=== PATIENT | female | born 1955 | race Caucasian/White ===

== ENCOUNTER → 2018-10-25 15:30 | Outpatient (CLI) | payer MEDICARE, OTHER, SELFPAY ==
[2018-10-25 17:36] LABS: Vitamin D,25 Hydroxy 24.1 ng/mL (29.95-100.01)
--- OUTSIDE RECORDS SUMMARY | 2019-01-27 08:05 | XMS RPT_ITS ---
:1955 Author Organization OHIP Care Team Providers Name Role Phone CHRIS HUIZAR Attending Unavailable CHRIS HUIZAR Referring Unavailable CHRSI HUIZAR Attending Unavailable CHRIS HUIZAR Referring Unavailable CHRIS HUIZAR Referring Unavailable CHRIS HUIZAR Referring Unavailable Omaira Ritchie Attending Unavailable Chris Huizar Primary Care Unavailable Omaira Ritchie Attending Unavailable Chris Huizar Primary Care Unavailable Omaira Ritchie Referring Unavailable PROBLEMS PROBLEMS DATE TYPE CONDITION / CODE ATTENDING STATUS SOURCE 10/25/2018 Unknown E55.9 - Vitamin D Omaira Ritchie Active [place] [facility] / Hospital E55.9(ICD-10) Repository 09/08/2018 Active Personal history of NA Active [place] other endocrine, Clinic Main nutritional and [place] metabolic disease / Repository Z86.39(ICD-10) 05/23/2009 Active Benign neoplasm of NA Active [place] pituitary gland / Clinic Main D35.2(ICD-10) [place] Repository 05/23/2009 Active Benign neoplasm of NA Active [facility] craniopharyngeal duct Clinic Main / D35.3(ICD-10) [place] Repository PROCEDURES PROCEDURES No Procedure Records FoundRESULTS RESULTS SCREENING MAMM (CAD), Observed: 11/17/2018 Status: F Source: [place] BILAT 12:18 PM [facility] HOSPITAL REPOSITORY [facility] Imaging Services [address] [place] [address] SCREENING MAMM (CAD), BILAT MR#: [id number] Acct: [id number] Name: LACEY CORREA Rep #: [id number] : 1955 F 63 From: Henok Szymanski MD PCP: Chris Huizar MD Status: REG CLI Study: SCREENING MAMM (CAD), BILAT Date of Exam: 11/17/18 Exam# [id number] Ordering Dr: Omaira Ritchie MD MAMMOGRAPHY - BILATERAL SCREENING REASON FOR EXAM: Female, 63 years old. Routine annual screening examination. PERTINENT HISTORY: Aunt with breast cancer. TECHNIQUE: Digital bilateral breast nadia (3D mammographic acquisition) in the CC and MLO projections. 2-D mediolateral oblique (MLO) and craniocaudad (CC) views of both breasts were obtained. CAD: Full Field Digital Mammography with Computer Added Detection was performed. COMPARISON: Comparison is made with prior study dated October 24, 2016 and November 05, 2017. FINDINGS: Breast Composition: The breasts are heterogeneously dense, which may obscure small masses. There are no dominant masses or suspicious calcifications. No other significant abnormalities are identified. There has been no significant change since the prior study. BI/SCREENING MAMM (CAD), BILAT IMPRESSION: Stable bilateral screening mammogram. Yearly follow-up mammogram recommended. (A) ASSESSMENT CATEGORY: BIRADS Category 1: Negative. A letter regarding these results will be sent to the patient by the facility within 30 days. Approximately 10% of breast cancers are not detected by mammography. A normal mammogram should not delay biopsy of a clinically suspicious abnormality. [id number] Electronically Signed: Henok Szymanski MD at 13:21 EST Tel [phone], Service support , CC: Omaira Ritchie MD; Chris Huizar MD Cloth Finishing Range Operator: Signed VITAMIN D,25 HYDROXY Collected: 10/25/2018 Status: F Source: [place] 3:41 PM [facility] REPOSITORY TYPE CODE TESTS RESULT OUT OF REFERENCE UNITS RANGE LAB L506.1000 29.95-100.01 ng/mL Low Vitamin D 24.1 25-OH Result Comment: Vitamin D 25(OH) Status Range Deficiency <20 ng/mL (50nmol/L) Insuffciency 20 - 30 ng/mL (50 - 75 nmol/L) Sufficiency 30 - 100 ng/mL (75 - 250 nmol/L) Toxicity >100 ng/mL (>250 nmol/L) Performed By: #### L506.1000 #### [facility] [place] [address] [place], [address] MRI PITUITARY WO/W Observed: 09/08/2018 Status: F Source: [place] IVCON 3:45 PM [facility] REPOSITORY * * *Final Report* * * DATE OF EXAM: Sep 08 2018 3:45PM [facility] 0314 - MRI PITUITARY WO/W IVCON / PROCEDURE REASON: multiple diagnoses * * * * Physician Interpretation * * * * EXAMINATION: MRI PITUITARY WO/W IVCON HISTORY: 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 (HCC) History of pituitary adenoma COMPARISON: 09/09/2016 and prior. TECHNIQUE: MRI brain pituitary protocol including postcontrast T1-weighted scans. No MRA. MR Contrast: Dotarem MR Contrast Volume (ml): 6ml MR Contrast Route of Administration: IV RESULT: Postsurgical changes from transsphenoidal resection of sellar mass are redemonstrated. The infundibulum is deviated to the right and there is residual [place] pituitary tissue in the right aspect of the sella. Hypoenhancing foci are present in the inferior aspect of the left and right sella which are grossly unchanged compared with prior study. On the left this measures approximately 0.9 cm TR, 0.7 cm AP and 0.3 cm CC. On the right this measures approximately 0.4 x 0.3 x 0.3 cm. There is are unchanged compared with prior study when measured at a similar level. There is no new sellar or suprasellar mass. The optic chiasm and optic apparatus is unremarkable. Visualized intracranial structures demonstrate no acute finding. Patchy white matter T2 hyperintensities likely representing chronic microvascular ischemic changes. IMPRESSION: Postsurgical change with stable appearance of the sella compared with prior studies. Cloth Finishing Range Operator: PSCShanita Transcribe Date/Time: Sep 08 2018 4:03P Dictated by : BHASKAR BRANTLEY MD This examination was interpreted and the report reviewed and electronically signed by: BHASKAR BRANTLEY MD on Sep 08 2018 4:16PM EST [id number] PROGRESS Observed: 09/08/2018 Status: COMPLETED Source: [place] 3:31 PM [facility] REPOSITORY HNO ID: [id number] Author: Gwendolyn (Rt) Cami Lay Service: (none) Author Type: Revenue Tax Specialist Type: Progress Notes Filed: 09/08/2018 3:32 PM Note Text: Radiology Service Progress Note PATIENT NAME: Lacey Correa DATE OF SERVICE: September 08, 2018 TIME: 3:31 PM PATIENT IDENTITY VERIFICATION COMPLETED USING TWO (2) METHODS: Patient confirmed name verbally and Date of . PATIENT GENDER DATA: Female. status: : No status: NO. PATIENT RELEVANT IMPLANT DATA REVIEWED: Yes CONTRAST INDUCED NEPHROPATHY RISK FACTORS: Patient age > 60 years CREATININE: Creatinine Date Value Ref Range Status 08/31/2018 0.77 0.58 - 0.96 mg/dL Final 08/26/2016 0.80 0.58 - 0.96 mg/dL Final 08/29/2014 0.81 0.70 - 1.40 mg/dL Final eGFR-All Other Races Date Value Ref Range Status 08/31/2018 >60 . Final Comment: eGFR (Estimated GFR) Units of measure: mL/min/1.73 meters squared eGFR is derived from the reexpressed MDRD Study equation using the following parameters: serum creatinine, age, gender and race. The creatinine assay has been calibrated to be traceable to IDMS. An eGFR <60 mL/min/1.73m2 for >3 months is consistent with chronic kidney disease. Refer to KDOQI guidelines for clinical interpretation. In patients with unstable renal function, e.g. those with acute kidney injury, the eGFR may not accurately reflect actual GFR. eGFR- Date Value Ref Range Status 08/31/2018 >60 Final P.O.C.T. RESULTS: POC done: Yes, See Lab Tab September 08, 2018 RADIOLOGIST NOTIFIED?: No ALLERGIES: Reviewed and unchanged CONTRAST ALLERGY: NO. PERIPHERAL IV ACCESS: Ambulatory: IV type: A peripheral IV was started in the Right antecubital site with a Angio cath: 22 gauge., Site assessment: Clean,Dry and Intact, Site disposition Discontinued RADIOLOGY DEPARTMENT: MR; Exam(s) Completed: Head: Pituitary SIGNED BY: RT Andria September 08, 2018 3:31 PM CREATININE Collected: 08/31/2018 Status: F Source: [place] 3:49 PM [facility] REPOSITORY TYPE CODE TESTS RESULT OUT OF REFERENCE UNITS RANGE LAB CRET 0.58-0.96 mg/dL Creatinine 0.77 LAB GFRAA eGFR- >60 Amer. LAB GFRNAA . eGFR-All Other Races >60 Result Comment: eGFR (Estimated GFR) Units of measure: mL/min/1.73 meters squared eGFR is derived from the reexpressed MDRD Study equation using the following parameters: serum creatinine, age, gender and race. The creatinine assay has been calibrated to be traceable to IDMS. An eGFR <60 mL/min/1.73m2 for >3 months is consistent with chronic kidney disease. Refer to KDOQI guidelines for clinical interpretation. In patients with unstable renal function, e.g. those with acute kidney injury, the eGFR may not accurately reflect actual GFR. Performed By: #### CRET1 #### [facility] [address] [place] [id number] CNOV Observed: 08/25/2018 Status: COMPLETED Source: [place] 1:20 PM [facility] REPOSITORY Office Visit (FAMPWS) LACEY CORREA ([id number]) 1955 F Date Time Provider Department 08/25/18 1:20 PM CHRIS HUIZAR During your visit today, we recorded the following information about you: Temperature Pulse Respiration Blood pressure 97.2 degrees 64/minute 16/minute 138/78 Weight 54.9 kg Chris Huizar MD 08/25/2018 1:45 PM Signed Chief Complaint Patient presents with: F/U 6 months Imm/Inj: Flu Vaccine HPI Lacey Correa is a 63 year old female who presents here today for 6 month follow up. Spending most of their time here, traveling a lot. Going to [facility] to [place], they do Nepalese set dancing which is similar to square dancing. Her children moved from [place] to [place]. Insomnia: is taking temazepam 15 mg about 2-3 times a week. Does not use daily. Tolerating the medication well, no problems or side effects. Is due for MRI Pituitary with Contrast, is having this done every 2 years at this time. Last one was Sep 2016. Dr Johnson's note from 2012 said: Patient should follow-up in clinic (or her local primary MD, which she refers and can be referred back to Dr. patel if she needs endocrine attention) in one year with serial MRs (1.5 T or stronger, of sella) -/+ Charly (or other neuroimaging if cannot tolerate MR) , once yearly through five years (fall 2013), then at 2 year intervals to 10 years or so and then q 3-5 years thereafter or if symptomatic. Past medical history, appointments, medications, allergies reviewed. Previous Medical History PAST MEDICAL HISTORY Diagnosis Date - Endometrial hyperplasia with atypia 06/16 - Pituitary adenoma (HCC) Previous Surgical History PAST SURGICAL HISTORY Procedure Laterality Date - PAST SURGICAL HISTORY OF Right inquinal hernia repair - PAST SURGICAL HISTORY OF 05/25/2009 Transnasal, transseptal, transsphenoidal hypophysectomy - VAGINAL HYSTERECTOMY 06/2008 Hysterectomy, vaginal Family History FAMILY HISTORY Problem Relation Age of Onset - Cancer Father non hogkin's lymphoma - Cancer Brother at age 20- dies from it testicular - Cancer Brother at age 20 testicular cancer - Cancer Paternal Uncle from testicular cancer - Colon Cancer Sister 51 Patient Allergies ALLERGIES No Known Allergies Current Medications Current Outpatient Prescriptions on File Prior to Visit: temazepam (RESTORIL) 15 mg cap Take 1 capsule at bedtime as needed For insomnia. DIPHENHYDRAMINE HCL (BENADRYL ORAL) Take by mouth. No current facility-administered medications on file prior to visit. Social History Social History Marital status: Spouse name: Years of education: Number of children: Social History Main Topics Smoking status: Never Smoker Smokeless tobacco: Never Used Alcohol use: No Drug use: No EXAM: BP 138/78 Pulse 64 Temp 36.2 ?C (97.2 ?F) (Tympanic) Resp 16 Wt 54.9 kg (121 lb) BMI 20.14 kg/m? General Appearance: Well appearing, alert, in no acute distress, well-hydrated, well nourished.. Lungs: Lungs clear to auscultation. No wheezing, rhonchi, rales. Heart: RRR without murmur, gallop, or rubs. No ectopy. Health Maintenance List DTAP,TDAP,TD(1 - Tdap) due on 1972 HEPATITIS C SCREENING due on 1997 INFLUENZA(1) due on 07/10/2018 BONE DENSITY due on 2018 ADULT PREVNAR-13 due on 2018 PAP EVERY 3 YEARS (65-80 YEARS OLD) due on 2018 PNEUMOVAX AGE 65 AND OVER WITH 5YR LOOKBACK(1) due on 2018 DIABETES SCREEN due on 10/17/2018 MAMMOGRAM due on 11/05/2018 LIPID SCREEN due on 10/17/2020 COLORECTAL CANCER SCREENING,SEE MODIFIER due on 03/18/2026 Data reviewed none ASSESSMENT/PLAN: 1. Adjustment insomnia - ICD9: 307.41, ICD10: F51.02 (primary diagnosis) controlled - TEMAZEPAM 15 MG CAPSULE 2. Need for vaccination - ICD9: V05.9, ICD10: Z23 - INFLUENZA SEASONAL HIGH DOSE AGE 65+ - PNEUMOCOCCAL-13 VACCINE PCV-13 3. Benign neoplasm of pituitary gland and craniopharyngeal duct (pouch) (HCC) - ICD9: 227.3, ICD10: D35.2, D35.3 Creatinine labs a few days prior - MRI PITUITARY WO/W IVCON - IV CONTRAST (RADIOLOGY PROCEDURE) Follow up in 6 months. I agree with the Chief Complaint, ROS, and Past Histories independently gathered by the clinical student support counselor and the remaining scribed note accurately describes my personal service to the patient. Chris Huizar MD The documentation for this note was completed by Akanksha Day Ma acting as scribe for Chris Huizar MD. August 25, 2018 1:20 PM. 63 year old female here for INACTIVATED INFLUENZA VACCINE. Season Patient is identified by name and date of : Yes [] CONTRAINDICATIONS color enhanced section Age less than 6 months? No Allergy to eggs, chicken, chicken feathers, or chicken dander? No Allergy to thimerosal (a preservative) or formaldehyde, gelatin? No History of severe reaction to any vaccine component or a previous dose of influenza vaccination? No History of Guillain-Badger Syndrome within 6 weeks after a previous influenza vaccine? No Patient is not moderately or severely ill? No Current temperature greater or equal to 100.4F? No History of Bone Marrow Transplant prior 6 months or solid organ transplant in the past 3 months ? No History of fainting after a prior injection or medical procedure? No- ? If patient has fainted in the past, the CDC recommends sitting or lying down for 15 minutes after the vaccination. [] VERIFICATION color enhanced section Was the answer Yes for any of the above contraindications? No contraindications present. Acceptable to proceed with vaccine. Patient/guardian agrees the above answers are true to the best of their knowledge? Yes Flu vaccine information sheet given? Yes See immunization activity in [facility] for details of immunizations adminstered today. Patient age: [age] year old For The 1523-1006 Flu Season 6-35 months old: Fluzone 0.25 ml - IM (Preservative Free) 3 years of age: Fluzone 0.5 ml - IM (Preservative Free) 3 years and older: Fluzone 0.5 ml- IM-(with Preservatives) 65+ years old: 2-49 years old Fluzone High-Dose 0.5 ml - IM (Preservative Free) FLUMIST- intranasal REMEMBER: If patient is less than 9 years of age and this is the first vaccine of Influenza to be received in any flu season, they should receive a second dose in one months time. Referring Provider: CHRIS HUIZAR [[id number]] Allergies As of Date: 08/25/2018 (No Known Allergies) Date Reviewed: 08/25/2018 Reviewed by: Akanksha Day Ma - Fully Assessed Reason for Visit: F/U 6 months [1177] Imm/Inj [58] Cmt: Flu Vaccine Reason For Visit History Recorded Primary Visit Diagnosis:Adjustment insomnia [F51.02] Other Visit Diagnoses:Need for vaccination [Z23] Benign neoplasm of pituitary gland and craniopharyngeal duct (pouch) (HCC) [D35.2, D35.3] History of pituitary adenoma [Z86.39] Order(s):INFLUENZA SEASONAL HIGH DOSE AGE 65+ [96809LFR] Order #: [id number] PNEUMOCOCCAL-13 VACCINE PCV-13 [75770CGN] Order #: [id number] temazepam (RESTORIL) 15 mg capTake 1 capsule at bedtime as needed For insomnia.Disp: 45 capsuleRfl: 1 MRI PITUITARY WO/W IVCON [[id number]] Order #: [id number] FUTURE iv contrast (will be provided with radiology test)MRI Pituitary Inject, intravenously, once for 1 dose. No IV access, insert saline lock prior to the beginning of sedation, infusion, injection of imaging exam. Discontinue saline lock post exam. If Pt. has a central line or IVAD, may access for administration according to line specific nursing protocol. Once exam is complete flush line and de-access according to line specific nursing protocol in the MR contrast administration guidelines link.Disp: 1 EachRfl: 0 CREATININE BLD [SQCRET] Order #: [id number] FUTURE Prescriptions as of 08/25/2018 Sig: TEMAZEPAM 15 MG CAPSULE Take 1 capsule at bedtime as * * BENADRYL ORAL Take by mouth. IV CONTRAST (RADIOLOGY PROCED* MRI Pituitary Inject, intrave* Problem List As Of Date 08/25/2018 Noted Resolved BENIGN KAVITHA PITUITARY [D35.2, D35.3] INVALID FOR* Adjustment insomnia [F51.02] INVALID FOR* Prescriptions ordered this encounter Disp Refills Start End TEMAZEPAM 15 MG CAPSULE 45 c* 1 08/25/2018 02/24/2019 Class: Print RX Sig: Take 1 capsule at bedtime as needed For insomnia. IV CONTRAST (RADIOLOGY PROCEDURE) 1 Ea* 0 08/25/2018 08/26/2018 Class: In Office Sig: MRI Pituitary Inject, intravenously, once for 1 dose. No IV access, insert saline lock prior to the beginning of sedation, infusion, injection of imaging exam. Discontinue saline lock post exam. If Pt. has a central line or IVAD, may access for administration according to line specific nursing protocol. Once exam is complete flush line and de-access according to line specific nursing protocol in the MR contrast administration guidelines link. Medications Discontinued During This Encounter temazepam (RESTORIL) 15 mg cap 30 c* 2 02/23/2018 08/25/2018 Class: Print RX Sig: Take 1 capsule at bedtime as needed For insomnia. Disc: Reason for discontinue is not on file. Disposition: Return in about 6 months (around 02/23/2019). Follow-up and Disposition History Recorded Encounter Status:Closed by CHRIS HUIZAR MD on 08/25/18 PROGRESS Observed: 08/25/2018 Status: COMPLETED Source: [place] 1:17 PM [facility] REPOSITORY O ID: [id number] Author: Chris Huizar Service: (none) Author Type: Physician Type: Progress Notes Filed: 08/25/2018 1:45 PM Note Text: Chief Complaint Patient presents with: F/U 6 months Imm/Inj: Flu Vaccine HPI Lacey Correa is a 63 year old female who presents here today for 6 month follow up. Spending most of their time here, traveling a lot. Going to [facility] to [place], they do Nep[place]e set dancing which is similar to square dancing. Her children moved from [place] to [place]. Insomnia: is taking temazepam 15 mg about 2-3 times a week. Does not use daily. Tolerating the medication well, no problems or side effects. Is due for MRI Pituitary with Contrast, is having this done every 2 years at this time. Last one was Sep 2016. Dr Johnson's note from 2012 said: Patient should follow-up in clinic (or her local primary MD, which she refers and can be referred back to Dr. patel if she needs endocrine attention) in one year with serial MRs (1.5 T or stronger, of sella) -/+ Charly (or other neuroimaging if cannot tolerate MR) , once yearly through five years (fall 2013), then at 2 year intervals to 10 years or so and then q 3-5 years thereafter or if symptomatic. Past medical history, appointments, medications, allergies reviewed. Previous Medical History PAST MEDICAL HISTORY Diagnosis Date - Endometrial hyperplasia with atypia 06/16 - Pituitary adenoma (HCC) Previous Surgical History PAST SURGICAL HISTORY Procedure Laterality Date - PAST SURGICAL HISTORY OF Right inquinal hernia repair - PAST SURGICAL HISTORY OF 05/25/2009 Transnasal, transseptal, transsphenoidal hypophysectomy - VAGINAL HYSTERECTOMY 06/2008 Hysterectomy, vaginal Family History FAMILY HISTORY Problem Relation Age of Onset - Cancer Father non hogkin's lymphoma - Cancer Brother at age 20- dies from it testicular - Cancer Brother at age 20 testicular cancer - Cancer Paternal Uncle from testicular cancer - Colon Cancer Sister 51 Patient Allergies ALLERGIES No Known Allergies Current Medications Current Outpatient Prescriptions on File Prior to Visit: temazepam (RESTORIL) 15 mg cap Take 1 capsule at bedtime as needed For insomnia. DIPHENHYDRAMINE HCL (BENADRYL ORAL) Take by mouth. No current facility-administered medications on file prior to visit. Social History Social History Marital status: Spouse name: Years of education: Number of children: Social History Main Topics Smoking status: Never Smoker Smokeless tobacco: Never Used Alcohol use: No Drug use: No EXAM: BP 138/78 Pulse 64 Temp 36.2 ?C (97.2 ?F) (Tympanic) Resp 16 Wt 54.9 kg (121 lb) BMI 20.14 kg/m? General Appearance: Well appearing, alert, in no acute distress, well-hydrated, well nourished.. Lungs: Lungs clear to auscultation. No wheezing, rhonchi, rales. Heart: RRR without murmur, gallop, or rubs. No ectopy. Health Maintenance List DTAP,TDAP,TD(1 - Tdap) due on 1972 HEPATITIS C SCREENING due on 1997 INFLUENZA(1) due on 07/10/2018 BONE DENSITY due on 2018 ADULT PREVNAR-13 due on 2018 PAP EVERY 3 YEARS (65-80 YEARS OLD) due on 2018 PNEUMOVAX AGE 65 AND OVER WITH 5YR LOOKBACK(1) due on 2018 DIABETES SCREEN due on 10/17/2018 MAMMOGRAM due on 11/05/2018 LIPID SCREEN due on 10/17/2020 COLORECTAL CANCER SCREENING,SEE MODIFIER due on 03/18/2026 Data reviewed none ASSESSMENT/PLAN: 1. Adjustment insomnia - ICD9: 307.41, ICD10: F51.02 (primary diagnosis) controlled - TEMAZEPAM 15 MG CAPSULE 2. Need for vaccination - ICD9: V05.9, ICD10: Z23 - INFLUENZA SEASONAL HIGH DOSE AGE 65+ - PNEUMOCOCCAL-13 VACCINE PCV-13 3. Benign neoplasm of pituitary gland and craniopharyngeal duct (pouch) (HCC) - ICD9: 227.3, ICD10: D35.2, D35.3 Creatinine labs a few days prior - MRI PITUITARY WO/W IVCON - IV CONTRAST (RADIOLOGY PROCEDURE) Follow up in 6 months. I agree with the Chief Complaint, ROS, and Past Histories independently gathered by the clinical student support counselor and the remaining scribed note accurately describes my personal service to the patient. Chris Huizar MD The documentation for this note was completed by Akanksha Day Ma acting as scribe for Chris Huizar MD. August 25, 2018 1:20 PM. 63 year old female here for INACTIVATED INFLUENZA VACCINE. 5162-6471 Season Patient is identified by name and date of : Yes [] CONTRAINDICATIONS color enhanced section Age less than 6 months? No Allergy to eggs, chicken, chicken feathers, or chicken dander? No Allergy to thimerosal (a preservative) or formaldehyde, gelatin? No History of severe reaction to any vaccine component or a previous dose of influenza vaccination? No History of Guillain-Badger Syndrome within 6 weeks after a previous influenza vaccine? No Patient is not moderately or severely ill? No Current temperature greater or equal to 100.4F? No History of Bone Marrow Transplant prior 6 months or solid organ transplant in the past 3 months ? No History of fainting after a prior injection or medical procedure? No- ? If patient has fainted in the past, the CDC recommends sitting or lying down for 15 minutes after the vaccination. [] VERIFICATION color enhanced section Was the answer Yes for any of the above contraindications? No contraindications present. Acceptable to proceed with vaccine. Patient/guardian agrees the above answers are true to the best of their knowledge? Yes Flu vaccine information sheet given? Yes See immunization activity in [facility] for details of immunizations adminstered today. Patient age: [age] year old For The 4018-4875 Flu Season 6-35 months old: Fluzone 0.25 ml - IM (Preservative Free) 3 years of age: Fluzone 0.5 ml - IM (Preservative Free) 3 years and older: Fluzone 0.5 ml- IM-(with Preservatives) 65+ years old: 2-49 years old Fluzone High-Dose 0.5 ml - IM (Preservative Free) FLUMIST- intranasal REMEMBER: If patient is less than 9 years of age and this is the first vaccine of Influenza to be received in any flu season, they should receive a second dose in one months time. PROGRESS Observed: 02/23/2018 Status: COMPLETED Source: [place] 1:24 PM [facility] REPOSITORY [facility] ID: [id number] Author: Chris Huizar Service: (none) Author Type: Physician Type: Progress Notes Filed: 02/24/2018 4:52 PM Note Text: Chief Complaint Patient presents with: F/U 6 Month HPI Lacey Correa is a 62 year old female who presents here today for 6 month follow up. No bowel, Gi, or urinary issues. No chest pains, dizziness, or SOB. Insomnia: is taking Temazepam 15 mg twice a week, but if she goes on vacation or travels she will use it more often. No side effects. Medication is working well for her. Does a lot of traveling back and forth to [place] to visit family and grand children. Past medical history, appointments, medications, allergies reviewed. Previous Medical History PAST MEDICAL HISTORY Diagnosis Date - Endometrial hyperplasia with atypia 06/16 - Pituitary adenoma (HCC) Previous Surgical History PAST SURGICAL HISTORY Procedure Laterality Date - PAST SURGICAL HISTORY OF Right inquinal hernia repair - PAST SURGICAL HISTORY OF 05/25/2009 Transnasal, transseptal, transsphenoidal hypophysectomy - VAGINAL HYSTERECTOMY 06/2008 Hysterectomy, vaginal Family History FAMILY HISTORY Problem Relation Age of Onset - Cancer Father non hogkin's lymphoma - Cancer Brother at age 20- dies from it testicular - Cancer Brother at age 20 testicular cancer - Cancer Paternal Uncle from testicular cancer - Colon Cancer Sister 51 Patient Allergies ALLERGIES No Known Allergies Current Medications Current Outpatient Prescriptions on File Prior to Visit: temazepam (RESTORIL) 15 mg cap Take 1 capsule at bedtime as needed For insomnia. DIPHENHYDRAMINE HCL (BENADRYL ORAL) Take by mouth. No current facility-administered medications on file prior to visit. Social History Social History Marital status: Spouse name: Years of education: Number of children: Social History Main Topics Smoking status: Never Smoker Smokeless status: Never Used Alcohol use: No Drug use: No EXAM: BP 120/74 Pulse 72 Resp 14 Wt 54.4 kg (120 lb) BMI 19.97 kg/m2 General Appearance: Well appearing, alert, in no acute distress, well-hydrated, well nourished.. Lungs: Lungs clear to auscultation. No wheezing, rhonchi, rales. Heart: RRR without murmur, gallop, or rubs. No ectopy. Health Maintenance List HEPATITIS C SCREENING due on 07/16/1997-declined DIABETES SCREEN due on 10/17/2018 MAMMOGRAM due on 11/05/2018 TETANUS due on 07/17/2019 LIPID SCREEN due on 10/17/2020 COLORECTAL CANCER SCREENING,SEE MODIFIER due on 03/18/2026 INFLUENZA Completed Data reviewed none ASSESSMENT/PLAN: 1. Adjustment insomnia - ICD9: 307.41, ICD10: F51.02 - TEMAZEPAM 15 MG CAPSULE Follow up in 6 months; will be due for repeat MRI at that time Chris Huizar MD The documentation for this note was completed by Akanksha Day Ma acting as scribe for Chris Huizar MD. February 23, 2018 1:24 PM. CNOV Observed: 02/23/2018 Status: COMPLETED Source: [place] 1:20 PM [facility] REPOSITORY Office Visit (FAMPWS) LACEY CORREA ([id number]) 1955 F Date Time Provider Department 02/23/18 1:20 PM [facility] During your visit today, we recorded the following information about you: Pulse Respiration Blood pressure Weight 72/minute 14/minute 120/74 54.4 kg Chris Huizar MD 02/24/2018 4:52 PM Signed Chief Complaint Patient presents with: F/U 6 Month HPI Laceylouisa Correa is a 62 year old female who presents here today for 6 month follow up. No bowel, Gi, or urinary issues. No chest pains, dizziness, or SOB. Insomnia: is taking Temazepam 15 mg twice a week, but if she goes on vacation or travels she will use it more often. No side effects. Medication is working well for her. Does a lot of traveling back and forth to [place] to visit family and grand children. Past medical history, appointments, medications, allergies reviewed. Previous Medical History PAST MEDICAL HISTORY Diagnosis Date - Endometrial hyperplasia with atypia 06/16 - Pituitary adenoma (HCC) Previous Surgical History PAST SURGICAL HISTORY Procedure Laterality Date - PAST SURGICAL HISTORY OF Right inquinal hernia repair - PAST SURGICAL HISTORY OF 05/25/2009 Transnasal, transseptal, transsphenoidal hypophysectomy - VAGINAL HYSTERECTOMY 06/2008 Hysterectomy, vaginal Family History FAMILY HISTORY Problem Relation Age of Onset - Cancer Father non hogkin's lymphoma - Cancer Brother at age 20- dies from it testicular - Cancer Brother at age 20 testicular cancer - Cancer Paternal Uncle from testicular cancer - Colon Cancer Sister 51 Patient Allergies ALLERGIES No Known Allergies Current Medications Current Outpatient Prescriptions on File Prior to Visit: temazepam (RESTORIL) 15 mg cap Take 1 capsule at bedtime as needed For insomnia. DIPHENHYDRAMINE HCL (BENADRYL ORAL) Take by mouth. No current facility-administered medications on file prior to visit. Social History Social History Marital status: Spouse name: Years of education: Number of children: Social History Main Topics Smoking status: Never Smoker Smokeless status: Never Used Alcohol use: No Drug use: No EXAM: BP 120/74 Pulse 72 Resp 14 Wt 54.4 kg (120 lb) BMI 19.97 kg/m2 General Appearance: Well appearing, alert, in no acute distress, well-hydrated, well nourished.. Lungs: Lungs clear to auscultation. No wheezing, rhonchi, rales. Heart: RRR without murmur, gallop, or rubs. No ectopy. Health Maintenance List HEPATITIS C SCREENING due on 07/16/1997-declined DIABETES SCREEN due on 10/17/2018 MAMMOGRAM due on 11/05/2018 TETANUS due on 07/17/2019 LIPID SCREEN due on 10/17/2020 COLORECTAL CANCER SCREENING,SEE MODIFIER due on 03/18/2026 INFLUENZA Completed Data reviewed none ASSESSMENT/PLAN: 1. Adjustment insomnia - ICD9: 307.41, ICD10: F51.02 - TEMAZEPAM 15 MG CAPSULE Follow up in 6 months; will be due for repeat MRI at that time Chris Huizar MD The documentation for this note was completed by Akanksha Day Ma acting as scribe for Chris Huizar MD. February 23, 2018 1:24 PM. Referring Provider: CHRIS HUIZAR [[id number]] Allergies As of Date: 02/23/2018 (No Known Allergies) Date Reviewed: 02/23/2018 Reviewed by: Akanksha Day Ma - Fully Assessed Reason for Visit: F/U 6 Month [444] Visit Diagnosis:Adjustment insomnia [F51.02] Order(s):temazepam (RESTORIL) 15 mg capTake 1 capsule at bedtime as needed For insomnia.Disp: 30 capsuleRfl: 2 Prescriptions as of 02/23/2018 Sig: TEMAZEPAM 15 MG CAPSULE Take 1 capsule at bedtime as * * BENADRYL ORAL Take by mouth. Problem List As Of Date 02/23/2018 Noted Resolved BENIGN KAVITHA PITUITARY [D35.2, D35.3] INVALID FOR* Adjustment insomnia [F51.02] INVALID FOR* Prescriptions ordered this encounter Disp Refills Start End TEMAZEPAM 15 MG CAPSULE 30 c* 2 02/23/2018 08/25/2018 Class: Print RX Sig: Take 1 capsule at bedtime as needed For insomnia. Medications Discontinued During This Encounter temazepam (RESTORIL) 15 mg cap 30 c* 2 08/24/2017 02/23/2018 Class: Print RX Sig: Take 1 capsule at bedtime as needed For insomnia. Disc: Reason for discontinue is not on file. Disposition: Return in about 6 months (around 08/25/2018). Follow-up and Disposition History Recorded Encounter Status:Closed by CHRIS HUIZAR MD on 02/24/18 ALLERGIES ALLERGIES DATE TYPE / CODE NAME / CODE REACTION SEVERITY SOURCE 07/31/2014 Drug No Known Unknown [facility] Allergy/416 Allergies/[id number] Hospital [id number](SNOM 0388(RXNORM) Repository ED CT) Drug NO KNOWN [facility] Class/04646 ALLERGIES [facility] 1003(SNOMED Repository CT) ENCOUNTERS ENCOUNTERS ADMIT/DISCHARGE ACCOUNT ADMITTING ENCOUNTER LOCATION SOURCE NUMBER CLASS 11/17/2018 [id number] [facility] ing:OPBI Repository 10/25/2018 [id number] [facility] ing:LAB.FUTUR Repository E 09/08/2018/09/08/[id number] Repository 08/31/2018/08/31/[id number] Repository 08/25/2018/08/26/[id number] Repository 02/23/2018/02/26/[id number] Repository PAYERS PAYERS ENCOUNTER GUARANTOR PAYER SUBSCRIBER SOURCE 11/17/2018 LACEY H Primary LACEY H [place] [id number] W Insurance:MEDICARE BAYDOB: [facility] PART A [facility] [id number] [place] Number: Repository [id number]: [phone] [id number] [phone] () Date:2018-09-24 11/17/2018 Secondary LACEY H [place] Insurance:EVERENCE BAYDOB: [facility] [id number] Hospital Number: Repository [id number] Date:[id number] [address]MN: 11/17/2018 Tertiary NOT GIVENUNK [place] Insurance:SELF PAY [facility]: Effective Repository Date:2018-09-24 10/25/2018 LACEY H Primary LACEY H [place] [id number] Insurance:MEDICARE [facility]: [facility] PART A [facility] [id number] Repository [id number]: [phone] [id number] [phone] () Date:2018-10-14 10/25/2018 Secondary LACEY H [place] [facility] [id number] Hospital Number: Repository [id number] Date:[id number] [address]NG: 10/25/2018 Tertiary NOT GIVENUNK [place] Insurance:SELF PAY [facility] Number: Effective Repository Date:2018-10-14
== END ==
PROVIDERS: Family Provider Family Medicine; PCP Family Medicine; Referring Provider Obstetrics & Gynecology Gynecology; Visit Provider Obstetrics & Gynecology Gynecology
DX: E55.9 Vitamin D deficiency, unspecified (principal); N95.1 Menopausal and female climacteric states
CPT/HCPCS: 36415; 82306

== ENCOUNTER → 2018-11-17 12:11 | Outpatient (CLI) | payer MEDICARE, OTHER, SELFPAY ==
--- NOTE | 2018-11-17 12:17 | BI_ITS ---
MAMMOGRAPHY - BILATERAL SCREENING REASON FOR EXAM: Female, 63 years old. Routine annual screening examination. PERTINENT HISTORY: Aunt with breast cancer. TECHNIQUE: Digital bilateral breast nadia (3D mammographic acquisition) in the CC and MLO projections. 2-D mediolateral oblique (MLO) and craniocaudad (CC) views of both breasts were obtained. CAD: Full Field Digital Mammography with Computer Added Detection was performed. COMPARISON: Comparison is made with prior study dated October 24, 2016 and November 05, 2017. FINDINGS: Breast Composition: The breasts are heterogeneously dense, which may obscure small masses. There are no dominant masses or suspicious calcifications. No other significant abnormalities are identified. There has been no significant change since the prior study. BI/SCREENING MAMM (CAD), BILAT IMPRESSION: Stable bilateral screening mammogram. Yearly follow-up mammogram recommended. (A) ASSESSMENT CATEGORY: BIRADS Category 1: Negative. A letter regarding these results will be sent to the patient by the facility within 30 days. Approximately 10% of breast cancers are not detected by mammography. A normal mammogram should not delay biopsy of a clinically suspicious abnormality. [id number] Electronically Signed: Henok Szymanski MD at 13:21 EST Tel [phone], Service support ,
== END ==
PROVIDERS: Family Provider Family Medicine; PCP Family Medicine; Visit Provider Obstetrics & Gynecology Gynecology
DX: Z12.31 Encounter for screening mammogram for malignant neoplasm of breast (principal)
CPT/HCPCS: 77063; 77067

== ENCOUNTER → 2019-02-01 12:16 | Outpatient (CLI) | payer MEDICARE, OTHER, SELFPAY ==
[2019-02-01 14:02] LABS: Vitamin D,25 Hydroxy 32.9 ng/mL (29.95-100.01)
== END ==
PROVIDERS: Family Provider Family Medicine; PCP Family Medicine; Referring Provider Obstetrics & Gynecology Gynecology; Visit Provider Obstetrics & Gynecology Gynecology
DX: E55.9 Vitamin D deficiency, unspecified (principal)
CPT/HCPCS: 36415; 82306

== ENCOUNTER → 2019-11-21 12:35 | Outpatient (CLI) | payer MEDICARE, OTHER, SELFPAY ==
--- NOTE | 2019-11-21 12:38 | BI_ITS ---
MAMMOGRAPHY - BILATERAL SCREENING REASON FOR EXAM: Female, 64 years old. Routine annual screening examination. PERTINENT HISTORY: Aunt with breast cancer. TECHNIQUE: Digital bilateral breast coby (3D mammographic acquisition) in the CC and MLO projections. 2-D mediolateral oblique (MLO) and craniocaudad (CC) views of both breasts were obtained. CAD: Full Field Digital Mammography with Computer Added Detection was performed. COMPARISON: Comparison is made with prior examination dated November 17, 2018 and November 05, 2017. FINDINGS: Breast Composition: The breasts are heterogeneously dense, which may obscure small masses. There are no dominant masses or suspicious calcifications. No other significant abnormalities are identified. There has been no significant change since the prior study. BI/SCREEN MAMM (CAD) W/COBY BILAT IMPRESSION: Stable bilateral screening mammogram. Yearly follow-up mammogram recommended. (A) ASSESSMENT CATEGORY: BIRADS Category 1: Negative. A letter regarding these results will be sent to the patient by the facility within 30 days. Approximately 10% of breast cancers are not detected by mammography. A normal mammogram should not delay biopsy of a clinically suspicious abnormality. [id number] Electronically Signed: Henok Szymanski, at 13:53 EST , Service support ,
== END ==
PROVIDERS: Family Provider Family Medicine; PCP Family Medicine; Referring Provider Obstetrics & Gynecology Gynecology; Visit Provider Obstetrics & Gynecology Gynecology
DX: Z12.31 Encounter for screening mammogram for malignant neoplasm of breast (principal)
CPT/HCPCS: 77063; 77067

== ENCOUNTER → 2021-06-27 09:58 | Outpatient (CLI) | payer MEDICARE, OTHER, SELFPAY ==
--- NOTE | 2021-06-27 10:03 | BI_ITS ---
MAMMOGRAPHY - BILATERAL SCREENING REASON FOR EXAM: Female, 65 years old. Routine annual screening examination. PERTINENT HISTORY: Aunt with breast cancer. TECHNIQUE: Digital bilateral breast coby (3D mammographic acquisition) in the CC and MLO projections. 2-D mediolateral oblique (MLO) and craniocaudad (CC) views of both breasts were obtained. CAD: Full Field Digital Mammography with Computer Added Detection was performed. COMPARISON: Comparison is made with prior examination dated 11/21/2019 and 11/17/2018. FINDINGS: Breast Composition: The breasts are heterogeneously dense, which may obscure small masses. There are no dominant masses or suspicious calcifications. No other significant abnormalities are identified. There has been no significant change since the prior study. BI/SCRN MAMM (CAD)W/COBY BILAT IMPRESSION: Stable bilateral screening mammogram. Yearly follow-up mammogram recommended. (A) ASSESSMENT CATEGORY: BIRADS Category 1: Negative. A letter regarding these results will be sent to the patient by the facility within 30 days. Approximately 10% of breast cancers are not detected by mammography. A normal mammogram should not delay biopsy of a clinically suspicious abnormality. [id number] Electronically Signed: Henok Szymanski MD at 10:42 EDT , Service support ,
== END ==
PROVIDERS: PCP Family Medicine; Referring Provider Obstetrics & Gynecology Gynecology; Visit Provider Obstetrics & Gynecology Gynecology
DX: Z12.31 Encounter for screening mammogram for malignant neoplasm of breast (principal)
CPT/HCPCS: 77063; 77067